=== PATIENT | female | born 1995 | race Caucasian/White ===

== ENCOUNTER 2016-05-12 23:03 | Emergency (ER) | payer OTHER ==
[~2016-05-12] VITALS: Ht 154.9 cm; Wt 44.5 kg
[~2016-05-12 23:03] MED LIST: CICLOPIROX TOP; [UNRECOGNIZED DRUG - OTHER] TOP
--- NOTE | 2016-05-12 23:40 | ED GI/GU/ABDOMINAL COMPLAINT ---
History of Present Illness General Chief Complaint: Nausea, Vomiting, Diarrhea Stated Complaint: NVD Source: patient, family Exam Limitations: no limitations Vital Signs & Intake/Output Vital Signs & Intake/Output Vital Signs Date Time Temp Pulse Resp B/P Pulse O2 O2 Flow FiO2 Ox Delivery Rate 05/13 0155 99.8 109 20 97/54 98 Room Air 05/12 2315 99.3 110 18 104/60 100 Room Air ED Intake and Output 05/13 0000 05/12 1200 Intake Total Output Total Balance Patient 98 lb Weight Allergies Coded Allergies: polymyxin B (From Polytrim) (Intermediate, EYES GET RED 05/12/16) trimethoprim (From Polytrim) (Intermediate, EYES GET RED 05/12/16) Reconcile Medications Ciclopirox (Ciclopirox 120 Ml) 1 % SHAMPOO 1 AMADOR TOP QPM ACNE (Reported) Clindamycin Phosphate 1 % MED..SWAB 1 PAD TOP BID ACNE (Reported) Triage Note: PT TO TRIAGE WITH C/O DIARRHEA WITH BRIGHT JIN BLOOD, NAUSEA, VOMITINGx3, INTERMITTENT MIDDLE ABD PAIN 7/10 SINCE 6PM. BP 104/60, TEMP 99.3 HR 110 IN TRIAGE. Triage Nurses Notes Reviewed? yes ? N Is pt currently ? No HPI: Earlier this evening the patient developed left lower quadrant abdominal crampy pain which was followed by watery diarrhea. Patient then became nauseous and began vomiting. Patient since then began having Blood per rectum with her bowel movements. Patient continues to be nauseous but she has not vomited in the past hour. Last time she moved her bowels was in the waiting room. There are no fevers or chills. Her boyfriend is sick with similar complaints but he has not had any blood in his stool. The pain is crampy and is 8 out of 10. There is no radiation. The pain is constant. There are no aggravating or mitigating factors. Past History Travel History Traveled to [place] past 21 day No Medical History Any Pertinent Medical History? none Surgical History Surgical History: non-contributory Psychosocial History Who do you live with Family What is your primary language Indonesian Tobacco Use: Never used ETOH Use: denies use Illicit Drug Use: denies illicit drug use Family History Hx Contributory? No Review of Systems Review of Systems Constitutional: Reports: no symptoms. EENTM: Reports: no symptoms. Respiratory: Reports: no symptoms. Cardiovascular: Reports: no symptoms. GI: Reports: see HPI, abdominal pain, diarrhea, nausea, bloody stool, vomiting. Genitourinary: Reports: no symptoms. Musculoskeletal: Reports: no symptoms. Skin: Reports: no symptoms. Neurological/Psychological: Reports: no symptoms. Hematologic/Endocrine: Reports: no symptoms. Immunologic/Allergic: Reports: no symptoms. All Other Systems: Reviewed and Negative Physical Exam Physical Exam General Appearance: well developed/nourished, alert, awake, anxious, moderate distress Head: atraumatic, normal appearance Eyes: Bilateral: PERRL, EOMI, other (ANICTERIC). Ears, Nose, Throat, Mouth: hearing grossly normal, DRY MUCOSA Neck: normal inspection, supple, full range of motion Respiratory: normal breath sounds, chest non-tender, no respiratory distress, lungs clear Cardiovascular: regular rate/rhythm, normal peripheral pulses Gastrointestinal: normal bowel sounds, soft, no organomegaly, tenderness, NO REBOUND OR GUARDING Back: normal inspection, normal range of motion Extremities: normal range of motion Neurologic/Psych: no motor/sensory deficits, awake, alert, oriented x 3, normal gait, normal mood/affect Skin: intact, normal color, warm/dry Core Measures ACS in differential dx? No Severe Sepsis Present: No Septic Shock Present: No Progress Differential Diagnosis: biliary colic, colon cancer, cholecystitis, diverticulitis, ectopic , gastritis, hepatitis, ischemic bowel, inflamm bowel dis, intrauterine , pancreatitis, peptic ulcer, PUD/GERD, SBO, threatened AB, UTI/pyelo Plan of Care: Orders Procedure Date/time Status URINALYSIS 05/12 2340 Complete LIPASE 05/12 2340 Complete HUMAN BETA HCG SCREEN 05/12 2340 Complete COMPREHENSIVE METABOLIC PANEL 05/12 2340 Complete CBC WITHOUT DIFFERENTIAL 05/12 2340 Complete AMYLASE 05/12 2340 Complete Laboratory Tests 05/13/16 0045: Urinalysis MOD H, Urine Color YEL, Urine Clarity CLEAR, Urine pH 7.0, Ur Specific Otto 1.020, Urine Protein 100 H, Urine Ketones 40 H, Urine Nitrite NEG, Urine Bilirubin POS@ICTO H, Urine Urobilinogen 0.2, Ur Leukocyte Esterase TRACE H, Ur Microscopic SEDIMENT EXAMINED, Urine RBC 1-3, Urine WBC 1-3 H, Ur Epithelial Cells FEW, Urine Bacteria RARE H, Urine Mucus MANY H, Urine Hemoglobin SMALL H, Urine Glucose NEG 05/12/16 2345: Anion Gap 14, Estimated GFR > 60, BUN/Creatinine Ratio 21.4, Glucose 133 H, Calcium 10.3 H, Total Bilirubin 1.3, AST 28, ALT 31, Alkaline Phosphatase 52, Total Protein 8.4 H, Albumin 5.0, Globulin 3.4, Albumin/Globulin Ratio 1.5, Amylase 48, Lipase 47, Total Beta HCG NEGATIVE, CBC w Diff MAN DIFF ORDERED, RBC 5.40, MCV 91.6, MCH 31.7 H, RDW 13.1, MPV 8.1, Gran % 91.9 H, Lymphocytes % 1.3 L, Monocytes % 6.6, Eosinophils % 0.1, Basophils % 0.1, Absolute Granulocytes 13.7 H, Segmented Neutrophils 71, Band Neutrophils 18 H, Absolute Lymphocytes 0.2 L, Lymphocytes 4 L, Monocytes 7, Absolute Monocytes 1.0 H, Absolute Eosinophils 0, Absolute Basophils 0, Platelet Estimate ADEQUATE, Normocytic RBCs VERIFIED, Normochromic RBCs VERIFIED, PUBS MCHC 34.6 Diagnostic Imaging: Viewed by Me: CT Scan. Discussed w/RAD: CT Scan. Radiology Impression: PATIENT: AVILA NEWSOME PRESENT AGE: 20 PATIENT ACCOUNT NO: [id number] : 96 LOCATION: [facility] ORDERING PHYSICIAN: HAL MATHEW MD SERVICE DATE: 05/13/16 EXAM TYPE: CAT - CT ABD & PELVIS W IV CONTRAST EXAMINATION: CT ABDOMEN AND PELVIS WITH CONTRAST CLINICAL INFORMATION: Colitis versus diverticulitis. COMPARISON: No relevant prior imaging available. TECHNIQUE: Multidetector volumetric imaging was performed of the abdomen and pelvis before and after the IV administration of 81 mL of Optiray 320 intravenous contrast. Sagittal and coronal reformatted images were obtained on the technologist's workstation. DLP: 241.90. mGy-cm FINDINGS: LUNG BASES: Lung bases are clear. There is no pleural or pericardial effusion. LIVER, GALLBLADDER, AND BILIARY TREE: The liver is normal in size, shape, and attenuation. No focal hepatic lesion or biliary ductal dilatation is present. The gallbladder is unremarkable with no evidence of radiopaque gallstones, gallbladder wall thickening, or obvious pericholecystic inflammatory changes. PANCREAS: Unremarkable. SPLEEN: Unremarkable. ADRENAL GLANDS: Unremarkable. KIDNEYS AND URETERS: The kidneys are normal in size, shape, and attenuation. No hydronephrosis, hydroureter, or calculi seen. No perinephric stranding. BLADDER: Unremarkable. GASTROINTESTINAL TRACT: There is a relative paucity of intraperitoneal fat therefore the evaluation of the abdominal viscera is somewhat limited. There is no worrisome mucosal thickening or enhancement within the colon or small bowel. No pathologically enlarged mesenteric or retroperitoneal lymph nodes. No free intraperitoneal air or fluid. The appendix is not definitively visualized however there are no abnormal inflammatory changes within the right lower quadrant to suggest appendicitis. ABDOMINAL WALL: No significant hernia is appreciated. LYMPH NODES: Normal. VASCULAR: Unremarkable. PELVIC VISCERA: There is an anteverted uterus. No worrisome adnexal mass. OSSEOUS STRUCTURES: Unremarkable. IMPRESSION: There is a relative paucity of intraperitoneal fat and therefore the evaluation of the abdominal viscera is somewhat limited. There is no free intraperitoneal air or fluid. No convincing evidence of acute diverticulitis. DICTATED BY: JB HAYNES MD DATE/TIME DICTATED:05/13/16129 [employer] TOOL TECHNICIAN:WILLIAM DATE/TIME TRANSCRIBED:05/13/16129 CONFIDENTIAL, DO NOT COPY WITHOUT APPROPRIATE AUTHORIZATION. <Electronically signed in Other Vendor System> SIGNED BY: JB HAYNES MD 05/13/16138 Initial ED EKG: none Comments: Patient is feeling better after IV fluids and IV Zofran. Departure Departure Disposition: HOME OR SELF CARE Condition: Stable Clinical Impression Primary Impression: Gastroenteritis Referrals: CHARI BIRMINGHAM,GRACIELA Alves (PCP/Family) Additional Instructions: Return if symptoms worsen or for any concerns. Departure Forms: Customer Survey General Discharge Information Prescriptions: Current Visit Scripts Ondansetron (Zofran Odt) 1 TAB SL TID PRN NAUSEA #10 TAB
[2016-05-13] LABS: ABSOLUTE BASOPHIL COUNT 0 /CUMM (0.0-0.2); ABSOLUTE EOSINOPHIL COUNT 0 /CUMM (0.0-0.7); ABSOLUTE GRANULOCYTE CT 13.7 /CUMM (1.4-6.5); ABSOLUTE LYMPH COUNT 0.2 /CUMM (1.2-3.4); BASOPHIL % 0.1 % (0.0-2.0); EOSINOPHIL % 0.1 % (0-5); GRANULOCYTE % 91.9 % (42.2-75.2); HEMATOCRIT 49.4 % (37-47); MEAN CORPUSCULAR HGB 31.7 PG (27.0-31.0); MEAN CORPUSCULAR HGB CONC 34.6 G/DL (33.0-37.0); MEAN CORPUSCULAR VOLUME 91.6 FL (81.0-99.0); MEAN PLATELET VOLUME 8.1 FL (7.4-10.4); PLATELET COUNT 260 /CUMM (130-400); RBC DISTRIBUTION WIDTH 13.1 % (11.5-14.5); WHITE BLOOD CELL COUNT 14.9 /CUMM (4.8-10.8)
--- NOTE | 2016-05-13 01:39 | CT SCAN REPORT ---
EXAMINATION: CT ABDOMEN AND PELVIS WITH CONTRAST CLINICAL INFORMATION: Colitis versus diverticulitis. COMPARISON: No relevant prior imaging available. TECHNIQUE: Multidetector volumetric imaging was performed of the abdomen and pelvis before and after the IV administration of 81 mL of Optiray 320 intravenous contrast. Sagittal and coronal reformatted images were obtained on the technologist's workstation. DLP: 241.90. mGy-cm FINDINGS: LUNG BASES: Lung bases are clear. There is no pleural or pericardial effusion. LIVER, GALLBLADDER, AND BILIARY TREE: The liver is normal in size, shape, and attenuation. No focal hepatic lesion or biliary ductal dilatation is present. The gallbladder is unremarkable with no evidence of radiopaque gallstones, gallbladder wall thickening, or obvious pericholecystic inflammatory changes. PANCREAS: Unremarkable. SPLEEN: Unremarkable. ADRENAL GLANDS: Unremarkable. KIDNEYS AND URETERS: The kidneys are normal in size, shape, and attenuation. No hydronephrosis, hydroureter, or calculi seen. No perinephric stranding. BLADDER: Unremarkable. GASTROINTESTINAL TRACT: There is a relative paucity of intraperitoneal fat therefore the evaluation of the abdominal viscera is somewhat limited. There is no worrisome mucosal thickening or enhancement within the colon or small bowel. No pathologically enlarged mesenteric or retroperitoneal lymph nodes. No free intraperitoneal air or fluid. The appendix is not definitively visualized however there are no abnormal inflammatory changes within the right lower quadrant to suggest appendicitis. ABDOMINAL WALL: No significant hernia is appreciated. LYMPH NODES: Normal. VASCULAR: Unremarkable. PELVIC VISCERA: There is an anteverted uterus. No worrisome adnexal mass. OSSEOUS STRUCTURES: Unremarkable. IMPRESSION: There is a relative paucity of intraperitoneal fat and therefore the evaluation of the abdominal viscera is somewhat limited. There is no free intraperitoneal air or fluid. No convincing evidence of acute diverticulitis.
[2016-05-13 01:55] VITALS: BP 97/54
[2016-05-13] MEDS ORDERED: ZOFRAN ODT4 M1 SL (01:56)
== END 2016-05-13 02:36 ==
LOC: ERH 23:03
PROVIDERS: Emergency Medicine
DX: K52.9 Noninfective gastroenteritis and colitis, unspecified (principal)
CPT/HCPCS: 74177; 81001; 96374; J2405